=== PATIENT | male | born 1950 | race Caucasian/White ===

== ENCOUNTER → 2016-08-19 | Outpatient (CLI) | payer OTHER ==
[~2016-08-19] MED LIST: DAILY MULTIPLE1 EACH PO; LIPITOR20 MG PO; MUPIROCIN22 GM TP; ZETIA10 MG PO
== END | disposition home or self-care (01) ==
LOC: RAD 08:33
DX: C71.8 Malignant neoplasm of overlapping sites of brain (principal)
CPT/HCPCS: 70491; 71260; 74177

== ENCOUNTER → 2017-08-24 | Outpatient (CLI) | payer OTHER ==
[~2017-08-24] VITALS: Ht 175.3 cm; Wt 75.0 kg
[~2017-08-24] MED LIST changes: +CELEXA10 MG PO; +SODIUM PO
[2017-08-24 07:07] VITALS: BP 119/71
== END | disposition home or self-care (01) ==
LOC: IVINF 07:00
PROVIDERS: Internal Medicine Nephrology
DX: E27.2 Addisonian crisis (principal)
CPT/HCPCS: 80400; 82024 90; 82533 91; 96374; J0834

== ENCOUNTER 2017-10-10 05:01 | Emergency (ER) | payer OTHER ==
[~2017-10-10] VITALS: Ht 175.3 cm; Wt 76.5 kg
[2017-10-10 07:35] LABS: ALBUMIN 4.4 G/DL (3.2-4.8); CHLORIDE 99 MEQ/L (99-109); POTASSIUM 3.9 MEQ/L (3.7-5.4); SODIUM 132 MEQ/L (136-147); TOTAL BILIRUBIN 0.6 MG/DL (0.0-1.0)
[2017-10-10 07:41] LABS: ALKALINE PHOSPHATASE 68 IU/L (3-129); ALT (GPT) 20 IU/L (3-49); AST (GOT) 25 IU/L (2-34); CREATININE 0.9 MG/DL (0.6-1.3); GFR ESTIMATE (CALCULATED) > 59 mL/min/ (58.99-99999); GLUCOSE 144 mg/dL (70-99); TOTAL PROTEIN 6.5 G/DL (6.4-8.3); UREA NITROGEN (BUN) 11 mg/dL (9-23)
[2017-10-10 11:57] VITALS: BP 152/90
== END 2017-10-10 12:01 | disposition hospice, home (50) ==
LOC: EME → EDBD 05:01 → EME 05:01
PROVIDERS: Emergency Medicine
DX: G93.89 Other specified disorders of brain (principal); C31.3 Malignant neoplasm of sphenoid sinus; C41.0 Malignant neoplasm of bones of skull and face; M54.2 Cervicalgia; R11.2 Nausea with vomiting, unspecified; R53.1 Weakness; Z85.841 Personal history of malignant neoplasm of brain; Z85.46 Personal history of malignant neoplasm of prostate; Z92.3 Personal history of irradiation; Z92.21 Personal history of antineoplastic chemotherapy; Z51.5 Encounter for palliative care
CPT/HCPCS: 70450; 71045; 72125; 80053; 85027; 99281; 99285; J1170; J2405; J3010; J7040